=== PATIENT | female | born 1935 | race Caucasian/White ===

== ENCOUNTER 2021-05-16 11:26 | Inpatient (IN) ==
[2021-05-16] MEDS ORDERED: SODIUM CHLORIDE 0.9% 1000ML 1,000 ML IV SCH (13:15)
[2021-05-16 13:16] LABS: Basophils # (auto) 0.02 K/uL (0-0.2); Basophils % (auto) 0.2 %; Eosinophils # (auto) 0.07 K/uL (0-0.5); Eosinophils % (auto) 0.7 %; Hematocrit (blood only) 37.6 % (37-47); Hemoglobin 12.4 g/dL (12.0-16.0); Immature Granulocytes # (auto) 0.05 K/uL (0.00-0.02); Immature Granulocytes % (auto) 0.5 %; Lymphocytes # (auto) 1.17 K/uL (1.2-3.4); Lymphocytes % (auto) 11.2 %; Mean Corpuscular Hemoglobin 32.5 pg (25-34); Mean Corpuscular Volume 98.4 fL (80-100); Mean Platelet Volume 10.2 fL (7.4-10.4); Monocytes # (auto) 0.67 K/uL (0.11-0.59); Monocytes % (auto) 6.4 %; Platelet Count 263 K/uL (130-400); RDW Coefficient of Variation 14.3 % (11.5-14.5); RDW Standard Deviation 50.9 fL (36.4-46.3); Red Blood Count 3.82 M/uL (4.2-5.4); White Blood Count 10.48 K/uL (4.8-10.8)
--- NOTE | 2021-05-16 13:28 | XRay Report ---
XR chest 1V portable HISTORY: 86 years-old Female weakness acute weakness COMPARISON: None TECHNIQUE: Portable AP view of the chest FINDINGS: Cardiac silhouette is enlarged. Calcified plaque the thoracic aorta. No pneumothorax, or large pleura l effusion. Interstitial coarsening with ill-defined peripheral prominent bilateral airspace densitie s. Degenerative changes of the shoulders and spine. Sigmoidal thoracolumbar scoliosis. Cholecystectom y. IMPRESSION: Cardiomegaly with interstitial coarsening and ill-defined peripheral predominated bilater al pulmonary opacities suspicious for an infectious or inflammatory pneumonitis such as viral pneumon ia. ACT 112: Negative or not required by law. The above report was generated using voice recognition software. It may contain grammatical, syntax o r spelling errors. Electronically signed by: Gregg Burns M.D. 05/16/2021 1:27 PM
--- NOTE | 2021-05-16 13:30 | Emergency Department Note ---
History of Present Illness General Chief complaint: Hypertension Stated complaint: FALL, HTN, NAUSEA/VOMITING Time Seen by Provider: 05/16/21 13:02 History of Present Illness 86-year-old female presents to the ED with a chief complaint of a fall this morning. She states that she lives alone in an apartment complex. She was not able to get up her self. She was too weak. She called her neighbor who then called EMS and they helped her up. After helping her up, she was unable to maneuver around the apartment and therefore they brought her in for evaluation. She did have an episode of nausea and vomiting in route to the hospital. The patient states that she has been feeling okay up until this morning. Denies any difficulty with eating or drinking. She states that while she was here she felt it was a little hard to breathe. She currently feels like her legs feel like lead. She denies any other complaints at this time. Denies any injury related to her fall. Denies striking her head or loss of consciousness. No neck or back pains. No extremity pains. No additional complaints this time she did report that her blood pressure was elevated for EMS. She has had some urinary symptoms recently but did not elaborate. Just states that she uses a pad. Home Medications Medication Instructions Recorded Confirmed Type METOPROLOL TARTRATE (LOPRESSOR) 12.5 mg PO BID #0 07/21/11 History ATORVASTATIN (LIPITOR) 10 mg PO QPM #0 07/30/14 History BETHANECHOL CHLORIDE (URECHOLINE) 25 mg PO TID #0 tab 07/30/14 History CHOLECALCIFEROL (Vitamin D) 2,000 inter.unit PO QAM #0 tab 07/30/14 History DULOXETINE HCL (CYMBALTA) 30 mg PO BID #0 cap 07/30/14 History HYDROCORTISONE (Hydrocortisone 1 dose TOPICAL BID PRN #0 07/30/14 History 2.5%) Isosorbide Mononitrate Ext Rel 60 mg PO QAM #0 tab 07/30/14 History (Imdur Ext Rel) MULTIPLE VITAMINS W/ MINERALS 1 cap PEG BID #0 07/30/14 History (PRESERVISION AREDS) POLYETHYLENE GLYCOL 3350 (MIRALAX) 1 dose PO DAILY PRN #0 07/30/14 History POLYETHYLENE GLYCOL-PROPYLENE 1 drp OPB QAM #0 07/30/14 History (SYSTANE) Acetaminophen (Tylenol Extra 1,000 mg PO Q8H 30 Days #0 tab 08/26/14 Rx Strength) Aspirin 325 mg PO BID 30 Days #0 08/26/14 Rx Oxycodone HCl 5 - 10 mg PO Q4H PRN #60 tab 08/26/14 Rx Allergies Allergy/AdvReac Type Severity Reaction Status Date / Time cat dander Allergy Unknown "eyes red Verified 08/23/14 05:21 and throat swells" iodine Allergy Unknown "miguel on Verified 08/23/14 05:21 skin" Sulfa (Sulfonamide Allergy Unknown "itchy" Verified 08/23/14 05:21 Antibiotics) Past Med/Surg History Social History Smoking Status: Never smoker Feels Safe at Home: Yes Review of Systems A total of 10 systems reviewed and were otherwise negative Physical Exam Vital Signs Vital Signs - 24 hr 05/16/21 11:32 05/16/21 13:14 05/16/21 13:30 Temperature 36.7 C 37 C Temperature Source Temporal Artery Scan Oral Pulse Rate 63 Pulse Rate [Apical] 58 L Respiratory Rate 18 18 Respiratory Effort / Characteristics Non-Labored Respiratory Depth Normal Blood Pressure 200/115 H Blood Pressure [Left Arm] 187/67 H Blood Pressure Mean 143 Blood Pressure Mean [Left Arm] 107 Blood Pressure Position [Left Arm] Semi-fowlers Pulse Oximetry 98 95 95 Oxygen Delivery Method Room Air Room Air Room Air Sepsis Recent Fever Within 48 Hours No Sepsis New/Unexplained Change in Mental Status No Sepsis Action Taken by Nursing No Action Required CONSTITUTIONAL/VITAL SIGNS: Reviewed / noted above. GENERAL: Non-toxic in appearance. Generalized weakness. INTEGUMENTARY: Warm, dry, and [place]. HEAD: Normocephalic. EYES: without scleral icterus or trauma. ENT/OROPHARYNX: clear and dry. LYMPHADENOPATHY/NECK: Is supple without lymphadenopathy or meningismus. RESPIRATORY: Clear to auscultation bilaterally. No increased work of breathing. CARDIOVASCULAR: Regular rate and rhythm. GI/ABDOMEN: Soft and nontender. No organomegaly or pulsatile mass. EXTREMITIES: Warm and well perfused. BACK: No CVA tenderness. NEUROLOGICAL: Intact without focal deficits. PSYCHIATRIC: normal affect. MUSCULOSKELETAL: Normally developed with good muscle tone. TRIAGE NURSING DOCUMENTATION REVIEWED. Course Administered Medications Discontinued Medications Sodium Chloride (Nss 1000ml) 1,000 mls @ 999 mls/hr IV .Q1H1M TULIO Stop: 05/16/21 14:15 Last Admin: 05/16/21 14:06 Dose: 999 mls/hr Documented by: [id number] Medical Decision Making Differential Diagnosis Medical decision Medical Records Attestation: I reviewed the patient's medical records. Home Medications Current Medication List: was personally reviewed by me Laboratory Data Attestation: I reviewed the patient's lab results. Result diagrams: 05/16/21 13:00 05/16/21 13:00 Lab Results 05/16/21 05/16/21 05/16/21 Range/Units 13:00 13:00 13:00 WBC 10.48 (4.8-10.8) K/uL RBC 3.82 L (4.2-5.4) M/uL Hgb 12.4 (12.0-16.0) g/dL Hct 37.6 (37-47) % MCV 98.4 (80-100) fL MCH 32.5 (25-34) pg MCHC 33.0 (32-36) g/dL RDW Std Deviation 50.9 H (36.4-46.3) fL RDW Coeff of Nickolas 14.3 (11.5-14.5) % Plt Count 263 (130-400) K/uL MPV 10.2 (7.4-10.4) fL Immature Gran % (Auto) 0.5 % Neut % (Auto) 81.0 % Lymph % (Auto) 11.2 % Franklin % (Auto) 6.4 % Eos % (Auto) 0.7 % Baso % (Auto) 0.2 % Neut # (Auto) 8.50 H (1.4-6.5) K/uL Lymph # (Auto) 1.17 L (1.2-3.4) K/uL Franklin # (Auto) 0.67 H (0.11-0.59) K/uL Eos # (Auto) 0.07 (0-0.5) K/uL Baso # (Auto) 0.02 (0-0.2) K/uL Immature Gran # (Auto) 0.05 H (0.00-0.02) K/uL Sodium 137 (136-145) mmol/L Potassium 4.2 (3.5-5.1) mmol/L Chloride 105 (98-107) mmol/L Carbon Dioxide 25 (21-32) mmol/L Anion Gap 7 (3-11) BUN 23 (6-23) mg/dl Creatinine 0.97 (0.6-1.2) mg/dl Est Cr Clr Drug Dosing Not Reportable Est GFR ( Amer) 60.4 ml/min Est GFR (Non-Af Amer) 52.1 ml/min BUN/Creatinine Ratio 23.7 H (10-20) Glucose 149 H (70-99(Fasting)) mg/dl Calcium 9.3 (8.5-10.1) mg/dl Magnesium (1.7-2.4) mg/dl Total Bilirubin 0.5 (0.2-1.0) mg/dl AST 19 (13-39) U/L ALT 12 (7-52) U/L Alkaline Phosphatase 79 (34-104) U/L Total Creatine Kinase (26-192) U/L Troponin I 0.07 H* (0-0.04) ng/ml Total Protein 7.6 (6.0-8.3) gm/dl Albumin 4.1 (3.4-5.0) gm/dl Globulin 3.5 (2.5-4.0) gm/dl Albumin/Globulin Ratio 1.2 (0.9-2) 05/16/21 Range/Units 13:00 WBC (4.8-10.8) K/uL RBC (4.2-5.4) M/uL Hgb (12.0-16.0) g/dL Hct (37-47) % MCV (80-100) fL MCH (25-34) pg MCHC (32-36) g/dL RDW Std Deviation (36.4-46.3) fL RDW Coeff of Nickolas (11.5-14.5) % Plt Count (130-400) K/uL MPV (7.4-10.4) fL Immature Gran % (Auto) % Neut % (Auto) % Lymph % (Auto) % Franklin % (Auto) % Eos % (Auto) % Baso % (Auto) % Neut # (Auto) (1.4-6.5) K/uL Lymph # (Auto) (1.2-3.4) K/uL Franklin # (Auto) (0.11-0.59) K/uL Eos # (Auto) (0-0.5) K/uL Baso # (Auto) (0-0.2) K/uL Immature Gran # (Auto) (0.00-0.02) K/uL Sodium (136-145) mmol/L Potassium (3.5-5.1) mmol/L Chloride (98-107) mmol/L Carbon Dioxide (21-32) mmol/L Anion Gap (3-11) BUN (6-23) mg/dl Creatinine (0.6-1.2) mg/dl Est Cr Clr Drug Dosing Est GFR ( Amer) ml/min Est GFR (Non-Af Amer) ml/min BUN/Creatinine Ratio (10-20) Glucose (70-99(Fasting)) mg/dl Calcium (8.5-10.1) mg/dl Magnesium 2.0 (1.7-2.4) mg/dl Total Bilirubin (0.2-1.0) mg/dl AST (13-39) U/L ALT (7-52) U/L Alkaline Phosphatase (34-104) U/L Total Creatine Kinase 134 (26-192) U/L Troponin I (0-0.04) ng/ml Total Protein (6.0-8.3) gm/dl Albumin (3.4-5.0) gm/dl Globulin (2.5-4.0) gm/dl Albumin/Globulin Ratio (0.9-2) Imaging Data Radiologist's Impression: Chest X-Ray 05/16/21 13:14 XR chest 1V portable HISTORY: 86 years-old Female weakness acute weakness COMPARISON: None TECHNIQUE: Portable AP view of the chest FINDINGS: Cardiac silhouette is enlarged. Calcified plaque the thoracic aorta. No pneumothorax, or large pleural effusion. Interstitial coarsening with ill- defined peripheral prominent bilateral airspace densities. Degenerative changes of the shoulders and spine. Sigmoidal thoracolumbar scoliosis. Cholecystectomy. IMPRESSION: Cardiomegaly with interstitial coarsening and ill-defined peripheral predominated bilateral pulmonary opacities suspicious for an infectious or inflammatory pneumonitis such as viral pneumonia. ACT 112: Negative or not required by law. The above report was generated using voice recognition software. It may contain grammatical, syntax or spelling errors. Electronically signed by: Gregg Burns M.D. 05/16/2021 1:27 PM ECG Data Attestation: I personally reviewed and interpreted this ECG as follows: Additional Comments: Twelve-lead EKG: Per my interpretation shows a sinus rhythm at a rate of 50. Variable PA intervals with variable conduction. No ST elevation. No PVCs. MDM Narrative Patient presents with generalized weakness and a fall this morning. She lives alone. Did not injure herself with a fall but was unable to get up. Does report some vague urinary symptoms and states that her mouth feels dry otherwise no specific complaints. Chest x-ray is concerning for possible pneumonia. Troponin is slightly elevated. EKG shows a sinus rhythm at a rate of 50 with variable PA intervals causing some irregularity in the rhythm.CBC was unremarkable. Chemistry panel was unremarkable. Urinalysis is pending. She was empirically treated with IV Rocephin and IV Zithromax for the chest x-ray findings. She was also given IV fluids. She will be seen by the hospitalist for further inpatient evaluation and care. Impression & Plan Fall, Generalized muscle weakness, Aspiration pneumonia of both lungs, Elevated troponin, Abnormal ECG Discharge Plan Visit Data Chief Complaint: Hypertension Stated Complaint: FALL, HTN, NAUSEA/VOMITING ED Provider: Carlito Acosta Discharge Problem: Fall, Generalized muscle weakness, Aspiration pneumonia of both lungs, Elevated troponin, Abnormal ECG Forms Stand Alone Forms: My [facility] Prescriptions Prescriptions: No Action METOPROLOL TARTRATE (LOPRESSOR) 25 MG tablet 12.5 mg PO BID Qty: 0 RF: 0 ATORVASTATIN (LIPITOR) 10 MG tablet 10 mg PO QPM Qty: 0 RF: 0 BETHANECHOL CHLORIDE (URECHOLINE) 25 MG tablet 25 mg PO TID Qty: 0 RF: 0 CHOLECALCIFEROL (Vitamin D) 1,000 INTER.UNIT tablet 2,000 inter.unit PO QAM Qty: 0 RF: 0 DULOXETINE HCL (CYMBALTA) 30 MG capsule 30 mg PO BID Qty: 0 RF: 0 HYDROCORTISONE (Hydrocortisone 2.5%) 30 GM cream 1 dose Topical BID PRN (Reason: PRN) Qty: 0 RF: 0 Isosorbide Mononitrate Ext Rel (Imdur Ext Rel) 60 MG EXT REL TAB 60 mg PO QAM Qty: 0 RF: 0 MULTIPLE VITAMINS W/ MINERALS (PRESERVISION AREDS) 1 CAP capsule 1 cap PEG BID Qty: 0 RF: 0 POLYETHYLENE GLYCOL 3350 (MIRALAX) 1 POW POW 1 dose PO DAILY PRN (Reason: PRN) Qty: 0 RF: 0 POLYETHYLENE GLYCOL-PROPYLENE (SYSTANE) 1 DONNA SOLTAB 1 drp OPB QAM Qty: 0 RF: 0 Acetaminophen (Tylenol Extra Strength) 500 MG tablet 1,000 mg PO Q8H 30 Days Qty: 0 RF: 0 Aspirin 325 MG ENTERIC COATED TAB 325 mg PO BID 30 Days Qty: 0 RF: 0 Oxycodone HCl 5 MG tablet 5 - 10 mg PO Q4H PRN (Reason: Pain) Qty: 60 RF: 0 Referrals Referrals: Lucho Adams DO [Primary Care Provider] -
[2021-05-16 13:58] LABS: Alanine Aminotransferase 12 U/L (7-52); Albumin Globulin Ratio 1.2 (0.9-2); Albumin Level 4.1 gm/dl (3.4-5.0); Alkaline Phosphatase 79 U/L (34-104); Anion Gap 7 (3-11); Aspartate Aminotransferase 19 U/L (13-39); BUN Creatinine Ratio 23.7 (10-20); Bilirubin,Total 0.5 mg/dl (0.2-1.0); Blood Urea Nitrogen 23 mg/dl (6-23); Calcium 9.3 mg/dl (8.5-10.1); Carbon Dioxide 25 mmol/L (21-32); Chloride 105 mmol/L (98-107); Est GFR (African American) 60.4 ml/min; Est GFR (Non-African American) 52.1 ml/min; Globulin 3.5 gm/dl (2.5-4.0); Glucose 149 mg/dl (70-99(Fasting)); Potassium 4.2 mmol/L (3.5-5.1); Sodium 137 mmol/L (136-145); Total Protein 7.6 gm/dl (6.0-8.3)
[2021-05-16] MEDS ORDERED: AZITHROMYCIN 500 MG in DEXTROSE 5% 250 ML IV ONE (14:29)
[2021-05-16] MEDS ORDERED: cefTRIAXone SODIUM 1,000 MG/50 ML BAG IV STA (14:29)
[2021-05-16 14:47] LABS: Appearance Urine Clear (Clear); Bacteria Urine Automated 1+ (Negative); Bilirubin Urine Negative (Negative); Blood Urine Trace (Negative); Cast Urine Automated 0 /lpf (0-5); Color Urine Yellow; Epithelial Cell Urine Auto 0-5 /lpf (0-5); Glucose Urine UA Negative (Negative); Ketones Urine Negative (Negative); Leukocyte Esterase Urine Trace (Negative); Nitrite Urine Positive (Negative); Protein Urine Trace (Negative); RBC Urine Automated 0-4 /hpf (0-4); Specific Gravity Urine 1.014 (1.000-1.030); Urobilinogen Urine Negative (Negative); WBC Urine Automated >30 /hpf (0-5)
[2021-05-16] MEDS ORDERED: hydrALAZINE HCL 20 MG/ML VIAL IV STA ×2 (15:32→16:29)
[2021-05-16] MEDS ORDERED: hydrALAZINE HCL 20 MG/ML VIAL IV PRN ×2 (16:18→17:15)
--- NOTE | 2021-05-16 16:25 | History & Physical Report ---
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 Generalized weakness Fall UTI Admit to PCU Await urine culture Received IV Rocephin 1 g in ED, give additional 1 g to equal 2 g Start 2 g IV Rocephin daily tomorrow PT/OT Hypertensive urgency Elevated troponin History of CAD with PCI to RCA in 2006 Abnormal EKG Patient with well-controlled BP as outpatient, Toprol and Imdur BP systolic greater than 230 during my evaluation She is without chest pain or shortness of breath, troponin 0.07 Hydralazine 10 mg IV x1 given SBP, give additional 10 mg IV hydralazine monitor closely, consider starting amlodipine or trial IV vasotec. If difficultly to control BP may need to consider cardene gtt ( Blood pressure improved to 153/62 and hydralazine 10mg x 2 and placement of burton catheter) cycle troponins, repeat EKG pt with abn ekg ? rate controlled afib and sinus pause, will monitor closely on tele, if definite afib consult cardiology give home dose imdur Urinary Retention nurse reports >800cc urine retention place burton, may be contributing to HTN burton drained 1250cc Hyperglycemia obtain a1c in a.m. admitting bsg 140s HLD continue statin CKD stage III renal function 0.97 avoid nephrotoxic agents DVT ppx: Lovenox Dispo: PCU FULL CODE PCP: Angie Pt was seen and examined in collaboration with Dr. Petty, please see addendum The chart was completed utilizing [employer] Speech voice recognition software. Grammatical errors, random word insertions, pronoun errors, and incomplete sentences are an occasional consequence of this system due to software limitations, ambient noise, and hardware issues. Any formal questions or concerns about the content, text, or information contained within the body of this dictation should be directly addressed to the provider for clarification. History of Present Illness Chief Complaint: Weakness, Fall and emesis x 1 day. 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 Patient's very good friend is at bedside who she lives bedside. She currently lives alone and ambulates with walker at baseline. She was in her normal state of health until this morning whenever she went to get out of bed to go to bathroom, she felt dizzy, "off balance," and fell to her knees. She did not lose consciousness or syncopized. She admits to hitting the back of her head off of a stand. She had no known injury. She was able to crawl to a phone and call her friend who then summoned EMS. When her friend arrived she did have episode of vomiting. Patient admits to being in her normal state of health yesterday. She currently feels chilled but denies any documented fever, sweats, lightheadedness, presyncope, URI symptoms, cough, chest pain, headache, change in vision, change in hearing, hematuria, melena or hematochezia. She does complain of suprapubic abdominal discomfort as well as dysuria. She denies any weight gain or edema. She states she is actually lost weight. She did not take any of her medications today. In ED patient's BP was significantly elevated but otherwise hemodynamically stable. Her lab work was consistent with WBC 10.48, H&H 12.4 and 37.6, BUN 23, creatinine 0.97, glucose 149, troponin 0.07, procalcitonin 0.05, urinalysis concerning for infection. Chest x-ray revealed cardiomegaly with bilateral pulmonary opacities concerning for infectious or inflammatory pneumonitis such as viral pneumonia. She is saturating well on room air without respiratory complaints. In ED she did receive IV Rocephin, azithromycin and IV fluid. Allergies Allergy/AdvReac Type Severity Reaction Status Date / Time iodine Allergy Intermediate "miguel on Verified 05/16/21 16:32 skin" cat dander Allergy Mild "eyes red Verified 05/16/21 16:32 and throat swells" nickel Allergy Mild skin Verified 05/16/21 16:32 breaks out Sulfa (Sulfonamide Allergy Mild "itchy" Verified 05/16/21 16:32 Antibiotics) Home Medications Medication Instructions Recorded Confirmed Type Betamethasone Lotion 1 applic TOPICAL BID 05/16/21 05/16/21 History acetaminophen 500 mg tablet 1,000 mg PO Q6H PRN 05/16/21 05/16/21 History (Tylenol Extra Strength) aspirin 81 mg tablet,delayed 81 mg PO DAILY 05/16/21 05/16/21 History release atorvastatin 10 mg tablet 10 mg PO DAILY 05/16/21 05/16/21 History betamethasone dipropionate 0.05 % 1 applic TOPICAL BID PRN 05/16/21 05/16/21 History topical cream cholecalciferol (vitamin D3) 125 125 mcg PO DAILY 05/16/21 05/16/21 History mcg (5,000 unit) tablet (Vitamin D3) duloxetine 30 mg capsule,delayed 30 mg PO BID 05/16/21 05/16/21 History release fluocinonide 0.05 % topical 1 applic TOPICAL BID 05/16/21 05/16/21 History solution hydrocortisone 2.5 % topical 1 applic TOPICAL BID PRN 05/16/21 05/16/21 History ointment hydroxyzine HCl 10 mg tablet 10 mg PO Q6 PRN 05/16/21 05/16/21 History isosorbide mononitrate 60 mg 60 mg PO DAILY 05/16/21 05/16/21 History tablet,extended release 24 hr metoprolol tartrate 25 mg tablet 12.5 mg PO BID 05/16/21 05/16/21 History ethxtnrl-szu-GK 200 mcg-vit K 15 1 tab PO DAILY 05/16/21 05/16/21 History mcg-lycope 150 ceu-xvugwu-fark tablet (Ocuvite Eye Plus Multi) peg 400-propylene glycol (PF) 0.4 0 drp OPHTHALMIC (EYE) DIRECTED 05/16/21 05/16/21 History %-0.3 % eye drops in a dropperette PRN (Systane (PF)) Past Med/Surg History Medical History (Updated 05/16/21 @ 16:36 by Viki Matthews PA-C) CAD (coronary artery disease) "s/p stent RCA 2006" Carotid stenosis, asymptomatic CKD (chronic kidney disease), stage III Dyslipidemia Hx of malignant melanoma of skin "right great toe s/p amputation" Hypertension Restless leg syndrome Surgical History (Updated 05/16/21 @ 16:25 by Viki Matthews PA-C) H/O cystoscopy H/O umbilical hernia repair History of hysterectomy S/P angioplasty with stent "RCA 2006" S/P eye surgery Family History (Updated 05/16/21 @ 16:28 by Viki Matthews PA-C) Mother , 62 Diabetes Stroke Father , 87 Cancer Social History (Updated 05/16/21 @ 16:32 by Viki Matthews PA-C) Smoking Status: Never smoker Hx Alcohol Use: Yes Alcohol type: beer Alcohol Intake Frequency: Monthly or Less Hx Substance Use: No marital status: / Current Living Situation: Other Current Living Situation Comment: apartment with friend nearby Feels Safe at Home: Yes Review of Systems Review of Systems: All systems reviewed & are unremarkable except as noted in HPI & below Physical Exam Physical Exam: Constitutional: WD/WN, elderly, F vitals as above, NAD, sitting up in bed, pleasant, conversing easily Head: Normocephalic, Atraumatic Eyes: PERRL, conjunctivae normal, anicteric sclerae ENMT: external ear and nose normal, oropharynx normal Neck: trachea midline, no thyromegaly normal visual inspection Respiratory: normal respiratory effort, lungs clear to auscultation, no wheeze, rales, rhonchi. Normal insp/exp effort, no accessory muscle use Cardiovascular: RRR, no murmur, no edema Vessels: no JVD or carotid bruit Chest: normal inspection of chest Abdomen: normal bowel sounds, soft, +suprapubic tenderness to palpation, no rebound,rigidty, no hepatosplenomegaly Musculoskeletal: no cyanosis or clubbing, extremities motor strength 5/5 Skin: no rashes, warm and dry normal turgor Neurologic: PERRL, EOMI, accommodation nl, no face palsy, no dysarthria CN's II-XI intact bilaterally and moves all extremities Psychiatric: A+Ox3, euthymic affect Lymphatic: no cervical or axillary lymphadenopathy : deferred Results & Data Results & Data (MN) Vital Signs (Past 12 Hours) Vital Signs Temp Pulse Pulse Resp BP BP Pulse Ox 05/16/21 13:30 37 C 58 L 18 187/67 H 95 05/16/21 13:14 95 05/16/21 11:32 36.7 C 63 18 200/115 H 98 Medications Administered Medication List Discontinued Medications Hydralazine HCl (Hydralazine Hcl 20 Mg/Ml Vial) 10 mg IV NOW STA Stop: 05/16/21 15:33 Last Admin: 05/16/21 15:51 Dose: 10 mg Documented by: [id number] Sodium Chloride (Nss 1000ml) 1,000 mls @ 999 mls/hr IV .Q1H1M TULIO Stop: 05/16/21 14:15 Last Admin: 05/16/21 14:06 Dose: 999 mls/hr Documented by: [id number] Ceftriaxone Sodium (Rocephin) 1,000 mg in 50 mls @ 100 mls/hr IV NOW STA Stop: 05/16/21 14:58 Last Infusion: 05/16/21 15:51 Dose: 0 mls/hr Documented by: [id number] Admin: 05/16/21 15:16 Dose: 100 mls/hr Documented by: [id number] Azithromycin 500 mg/ Dextrose 255 mls @ 125 mls/hr IV ONE ONE Stop: 05/16/21 16:31 Last Admin: 05/16/21 15:52 Dose: 125 mls/hr Documented by: [id number] ECG Rate (beats per minute): 50 Rhythm: normal sinus Additional Comments: EKG reading afib, but pt with p waves and regularity with pause COVID-19 Results Results COVID-19 Adm Lab Results: RBC 3.82 M/uL (4.2-5.4) L 05/16/21 WBC 10.48 K/uL (4.8-10.8) 05/16/21 Hgb 12.4 g/dL (12.0-16.0) 05/16/21 Hct 37.6 % (37-47) 05/16/21 Plt Count 263 K/uL (130-400) 05/16/21 Neutrophils (%) (Auto) 81.0 % 05/16/21 Lymphocytes (%) (Auto) 11.2 % 05/16/21 Monocytes # (Auto) 0.67 K/uL (0.11-0.59) H 05/16/21 Eosinophils # (Auto) 0.07 K/uL (0-0.5) 05/16/21 Immature Granulocyte % (Auto) 0.5 % 05/16/21 Neutrophils # (Auto) 8.50 K/uL (1.4-6.5) H 05/16/21 Lymphocytes # (Auto) 1.17 K/uL (1.2-3.4) L 05/16/21 Monocytes # (Auto) 0.67 K/uL (0.11-0.59) H 05/16/21 Eosinophils # (Auto) 0.07 K/uL (0-0.5) 05/16/21 Basophils # (Auto) 0.02 K/uL (0-0.2) 05/16/21 Immature Granulocyte # (Auto) 0.05 K/uL (0.00-0.02) H 05/16/21 Na 137 mmol/L (136-145) 05/16/21 K 4.2 mmol/L (3.5-5.1) 05/16/21 Cl 105 mmol/L (98-107) 05/16/21 CO2 25 mmol/L (21-32) 05/16/21 Anion Gap 7 (3-11) 05/16/21 BUN 23 mg/dl (6-23) 05/16/21 Creatinine 0.97 mg/dl (0.6-1.2) 05/16/21 BUN/Creatinine Ratio 23.7 (10-20) H 05/16/21 Glucose Level 149 mg/dl (70-99(Fasting)) H 05/16/21 Ca 9.3 mg/dl (8.5-10.1) 05/16/21 Total Bilirubin 0.5 mg/dl (0.2-1.0) 05/16/21 AST/SGOT 19 U/L (13-39) 05/16/21 ALT/SGPT 12 U/L (7-52) 05/16/21 Alkaline Phosphatase 79 U/L (34-104) 05/16/21 Total Protein 7.6 gm/dl (6.0-8.3) 05/16/21 Albumin 4.1 gm/dl (3.4-5.0) 05/16/21 Globulin 3.5 gm/dl (2.5-4.0) 05/16/21 Albumin/Globulin Ratio 1.2 (0.9-2) 05/16/21 Total CK 134 U/L (26-192) 05/16/21 Troponin I 0.07 ng/ml (0-0.04) H* 05/16/21 Procalcitonin < 0.05 ng/ml (0-0.5) 05/16/21 SARS-CoV-2, RNA, NAAT NEGATIVE (NEGATIVE) 05/16/21 Chest X-Ray 05/16/21 Code Status & VTE Plan Code Status FULL CODE VTE Prophylaxis Plan VTE Prophylaxis will be ordered: Yes Supervising Physician Co-Signing Physician Notes Attending addendum: Patient is an 86 year old female with h/o HTN, CAD, HLD presented to the ED with weakness and fall today. Hit the back of her head but denies any LOC. No external bruise noted. Awake, alert oriented in ED, hemodynamically stable, non focal exam. Chest clear bilaterally, heart sounds normal. no bruises noted. no edema. Abdomen benign. Found to have UTI with urinary retention and hypertensive urgency in the ED. Assessment/Plan: 1. UTI- Continue rocephin pending urine clx results. Tailor per culture results 2. Urinary retention- due to above. Burton placed. Voiding trial in few days. 3. Hypertensive urgency- likely contributed by urinary retention. Improved after burton and iv hydralazine. Continue home metoprolol and imdur, iv hydralazine prn. 4.Mildly elevated trop with abnormal EKG- likely from #3. No chest pain. Trend trop, monitor on tele. Consider cardio evaluation if needed. I personally reviewed the record. I interviewed and examined the patient at bedside. Patient's care is coordinated with Viki Matthews PA-C. Please refer to the documentation above for details of patient's presentation and for discussion of other issues.
[2021-05-16] MEDS ORDERED: ISOSORBIDE MONO EXTENDED REL 60 MG TABCR PO STA (16:41)
--- NOTE | 2021-05-16 17:10 | Electrocardiogram Report ---
Test Reason : Blood Pressure : / mmHG Vent. Rate : 050 BPM Atrial Rate : 066 BPM P-R Int : 000 ms QRS Dur : 098 ms QT Int : 440 ms P-R-T Axes : 000 -33 088 degrees QTc Int : 401 ms Sinus bradycardia with marked sinus arrhythmia and junctional escape beats Left axis deviation Voltage criteria for left ventricular hypertrophy Anterior infarct (cited on or before 16-MAY-2021) Abnormal ECG When compared with ECG of 30-JUL-2014 13:13, Vent. rate has decreased BY 24 BPM Questionable change in initial forces of Anteroseptal leads Confirmed by Antwan Crouch ([id number]) on 05/16/2021 5:10:16 PM Referred By: REFERRED SELF Confirmed By:Antwan Crouch
[2021-05-16] MEDS ORDERED: ALUMINUM/MAGNESIUM SUSP 30 ML UDC PO PRN (17:15)
[2021-05-16] MEDS ORDERED: hydrOXYzine HCl 10 MG TAB PO PRN (17:15)
[2021-05-16] MEDS ORDERED: POLYETHYLENE (MIRALAX) 17 GM PACK PO PRN (17:15)
[2021-05-16] MEDS ORDERED: BETAMETHASONE DIP AUG (DIPROLENE) 0.05% CR 15 GM TUBE EXT PRN (17:15)
[2021-05-16] MEDS ORDERED: ONDANSETRON INJ 2 MG/ML 2 ML VIAL IV PRN (17:15)
[2021-05-16] MEDS ORDERED: MAGNESIUM HYDROXIDE SUSP 30 ML UDC PO PRN (17:15)
--- NOTE | 2021-05-16 17:15 | Electrocardiogram Report ---
Test Reason : Blood Pressure : / mmHG Vent. Rate : 057 BPM Atrial Rate : 061 BPM P-R Int : 000 ms QRS Dur : 096 ms QT Int : 468 ms P-R-T Axes : 000 082 -23 degrees QTc Int : 455 ms Poor data quality, interpretation may be adversely affected Sinus rhythm with blocked PAC Septal infarct (cited on or before 16-MAY-2021) Abnormal ECG When compared with ECG of 16-MAY-2021 13:00, (unconfirmed) No significant change Confirmed by Antwan Crouch ([id number]) on 05/16/2021 5:15:23 PM Referred By: REFERRED SELF Confirmed By:Antwan Crouch
[2021-05-16] MEDS ORDERED: cefTRIAXone SODIUM 1000MG/50ML D5W IV ONE (18:08)
[2021-05-16] MEDS ORDERED: cefTRIAXone SODIUM 1,000 MG in DEXTROSE 5% 50 ML IV ONE (18:15)
[2021-05-16] MEDS ORDERED: ARTIFICIAL TEARS OP PRN (18:15)
[2021-05-16] MEDS: ACETAMINOPHEN 325 MG TAB PO PRN (21:22)
[2021-05-16] MEDS: METOPROLOL TARTRATE 25 MG TAB PO SCH (21:22)
[2021-05-16] MEDS: ENOXAPARIN INJ 40 MG/0.4 ML SYR SQ SCH (21:42)
[2021-05-16] MEDS: DULoxetine HCL 30 MG CAP PO SCH (21:42)
[2021-05-17 05:36] LABS: Basophils # (auto) 0.01 K/uL (0-0.2); Basophils % (auto) 0.1 %; Eosinophils # (auto) 0.09 K/uL (0-0.5); Hematocrit (blood only) 32.8 % (37-47); Hemoglobin 10.7 g/dL (12.0-16.0); Immature Granulocytes # (auto) 0.02 K/uL (0.00-0.02); Immature Granulocytes % (auto) 0.2 %; Lymphocytes # (auto) 2.16 K/uL (1.2-3.4); Lymphocytes % (auto) 23.9 %; Mean Corpuscular Hgb Conc 32.6 g/dL (32-36); Mean Corpuscular Volume 98.2 fL (80-100); Mean Platelet Volume 9.7 fL (7.4-10.4); Monocytes % (auto) 11.1 %; Neutrophils # (auto) 5.76 K/uL (1.4-6.5); Neutrophils % (auto) 63.7 %; Nucleated RBC # (auto) 0.02 K/uL (0-0); Nucleated RBC % (auto) 0.2 %; Platelet Count 226 K/uL (130-400); RDW Coefficient of Variation 14.5 % (11.5-14.5); RDW Standard Deviation 51.6 fL (36.4-46.3); Red Blood Count 3.34 M/uL (4.2-5.4); White Blood Count 9.04 K/uL (4.8-10.8)
[2021-05-17 06:02] LABS: Albumin Globulin Ratio 1.2 (0.9-2); Albumin Level 3.3 gm/dl (3.4-5.0); BUN Creatinine Ratio 20.2 (10-20); Bilirubin,Total 0.6 mg/dl (0.2-1.0); Calcium 8.4 mg/dl (8.5-10.1); Creatinine Clr Calc Pharmacy 42.2 ml/min; Est GFR (African American) 55.6 ml/min; Est GFR (Non-African American) 47.9 ml/min; Globulin 2.8 gm/dl (2.5-4.0); Magnesium 1.8 mg/dl (1.7-2.4); Potassium 3.8 mmol/L (3.5-5.1); Total Protein 6.1 gm/dl (6.0-8.3)
[2021-05-17] MEDS ORDERED: cefTRIAXone SODIUM 2000MG/70ML D5W IV ONE (08:28)
[2021-05-17 08:36] LABS: Estimated Average Glucose 131 mg/dl; Hemoglobin A1C 6.2 % (4.5-5.6)
[2021-05-17] MEDS: cefTRIAXone SODIUM 2,000 MG in DEXTROSE 5% 50 ML IV SCH (09:13)
[2021-05-17] MEDS: CHOLECALCIFEROL 5,000 UNITS 125 MCG TAB PO SCH (09:13)
[2021-05-17] MEDS: DULoxetine HCL 30 MG CAP PO SCH ×2 (09:13→21:38)
[2021-05-17] MEDS: ASPIRIN 81 MG ECTAB PO SCH (09:13)
[2021-05-17] MEDS: ISOSORBIDE MONO EXTENDED REL 60 MG TABCR PO SCH (09:13)
[2021-05-17] MEDS: METOPROLOL TARTRATE 25 MG TAB PO SCH ×2 (09:13→21:38)
[2021-05-17] MEDS: ATORVASTATIN 10 MG TAB PO SCH (09:13)
[2021-05-17] MEDS: MULTIVITAMIN TAB PO SCH (09:14)
--- NOTE | 2021-05-17 11:29 | CT Scan Report ---
CT SCAN OF THE CHEST WITHOUT IV CONTRAST CLINICAL HISTORY: Dyspnea. COMPARISON STUDY: Chest x-ray dated 05/16/2021. TECHNIQUE: CT scan of the thorax was performed from the thoracic inlet to the upper abdomen. Images are reviewed in the axial, sagittal, and coronal planes. IV contrast was not administered for this ex amination as per the referring clinician. A dose lowering technique was utilized adhering to the [facility] of [place]. CT DOSE: 402.44 mGy.cm FINDINGS: Thyroid: Normal in size and heterogeneous in attenuation. Thoracic aorta: There is atherosclerotic calcification of the thoracic aorta trauma with is normal in caliber and demonstrates standard 3-vessel arch anatomy. Heart: The heart is enlarged and without pericardial effusion. The pulmonary trunk is mildly dilated measuring 3.3 cm diameter. This suggests pulmonary artery hypertension. The coronary arteries and dileep ral annulus are densely calcified. Lungs and pleural spaces: Subpleural reticulation is seen throughout both lungs. There is bibasilar s carring/atelectasis. No airspace consolidation typical for pneumonia or pleural effusion is identifie d. Foci of air trapping are seen throughout both lungs. The trachea and central airways are clear. A 4 mm focus of pleural-based nodularity seen in the right upper lobe along the minor fissure on image #152. Mediastinum: There is no mediastinal lymphadenopathy. Glenis: Not well assessed without IV contrast. Axillae: There is no axillary lymphadenopathy. Upper abdomen: There is a small to moderate hiatal hernia. A coarse calcification is noted in the rig ht lobe of the liver. Diverticula are noted in the partially imaged left colon. Skeletal structures: The skeletal structures are osteopenic. There is a mild chronic superior endplat e compression deformity of T3. Degenerative change is noted in the shoulders and thoracic spine. Ther e are healed right-sided rib fractures. No lytic or blastic bony lesions are seen. IMPRESSION: Cardiomegaly and chronic parenchymal changes as above with no active disease in the chest . ACT 112: Negative or not required by law. Electronically signed by: Kendall Walker M.D. 05/17/2021 11:27 AM
[2021-05-17] MEDS: ENOXAPARIN INJ 40 MG/0.4 ML SYR SQ SCH (21:37)
[2021-05-18] MEDS: cefTRIAXone SODIUM 2,000 MG in DEXTROSE 5% 50 ML IV SCH (07:18)
[2021-05-18] MEDS: MULTIVITAMIN TAB PO SCH (07:24)
[2021-05-18] MEDS: ASPIRIN 81 MG ECTAB PO SCH (07:25)
[2021-05-18] MEDS: CHOLECALCIFEROL 5,000 UNITS 125 MCG TAB PO SCH (07:26)
[2021-05-18] MEDS: METOPROLOL TARTRATE 25 MG TAB PO SCH ×2 (07:26→21:21)
[2021-05-18] MEDS: ISOSORBIDE MONO EXTENDED REL 60 MG TABCR PO SCH (07:27)
[2021-05-18] MEDS: ATORVASTATIN 10 MG TAB PO SCH (07:28)
[2021-05-18] MEDS: DULoxetine HCL 30 MG CAP PO SCH ×2 (07:29→21:21)
[2021-05-18] MEDS: ACETAMINOPHEN 325 MG TAB PO PRN (11:06)
--- NOTE | 2021-05-18 11:31 | Electrocardiogram Report ---
Test Reason : Blood Pressure : / mmHG Vent. Rate : 056 BPM Atrial Rate : 062 BPM P-R Int : 342 ms QRS Dur : 100 ms QT Int : 442 ms P-R-T Axes : 073 -29 121 degrees QTc Int : 426 ms Sinus rhythm with Mobitz I (Wenckebach) block Left ventricular hypertrophy with repolarization abnormality Cannot rule out Septal infarct (cited on or before 16-MAY-2021) Abnormal ECG When compared with ECG of 16-MAY-2021 14:56, Significant changes have occurred Confirmed by Eliel Agarwal ([id number]) on 05/18/2021 11:30:25 AM Referred By: REFERRED SELF Confirmed By:Eliel Agarwal
--- NOTE | 2021-05-18 16:03 | Hospitalist Progress Note ---
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 Generalized weakness Fall UTI Urine culture: Staph species continue Ceftri IV improving PT recommending Rehab Hypertensive urgency Mildly Elevated troponin History of CAD with PCI to RCA in 2006 Abnormal EKG Patient with well-controlled BP as outpatient, Toprol and Imdur BP systolic greater than 230 during my evaluation She is without chest pain or shortness of breath, troponin 0.07 Hydralazine 10 mg IV x1 given SBP, give additional 10 mg IV hydralazine monitor closely, consider starting amlodipine or trial IV vasotec. If difficultly to control BP may need to consider cardene gtt ( Blood pressure improved to 153/62 and hydralazine 10mg x 2 and placement of burton catheter) cycle troponins, repeat EKG pt with abn ekg ? rate controlled afib and sinus pause, will monitor closely on tele, if definite afib consult cardiology give home dose imdur 05/18 troponin trended down from 0.2 to 0.1 EKG no signs of acute infarct Echo; EF 65-70% moderate LVH no regional wall motion abnormalities Urinary Retention nurse reports >800cc urine retention continue Burton Cath, anticipate remove tomorrow Hyperglycemia a1c 6.2 diet HLD continue statin CKD stage III stable avoid nephrotoxic agents DVT ppx: Lovenox Dispo: PT recommending to transition to Rehab/SNF FULL CODE PCP: Angie Admission and Anticipated Discharge Date Admission Date: May 16, 2021 Subjective ff up for weakness, UTI etc seen resting in bed, comfortable in good spirits states she feels that she is improving no abdominal pain, problems with urination, etc reports R base of 1st digit pain no other symptoms Review of Systems Review of Systems: all noted and negative except for above Physical Exam Physical Exam: General- oriented x 3, not in distress, speaks in sentences with no effort or accessory muscle use Eyes- anicteric Neck- no JVD Lungs- clear breath sounds bilaterally, no rales/wheezes Heart- normal rate, regular rhythm; no murmurs Abdomen- normal bowel sounds, nondistended, soft, nontender Extremities- no pretibial edema, no calf tenderness Neuro- alert, oriented x 3; no gross focal neurologic deficits Skin- warm & dry Results & Data Results & Data ([facility]) Vital Signs (Past 12 Hours) Vital Signs Temp Pulse Pulse Resp BP Pulse Ox 05/18/21 15:08 36.8 C 67 18 146/69 H 96 05/18/21 12:42 36.4 C L 64 18 147/75 H 96 05/18/21 08:03 63 05/18/21 07:18 37.0 C 61 18 178/78 H 95 all noted and reviewed including below
--- NOTE | 2021-05-18 16:12 | Hospitalist Progress Note ---
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 Generalized weakness Fall UTI Urine culture: Staph species afebrile weakness improving continue Ceftri IV Hypertensive urgency Mildly Elevated troponin History of CAD with PCI to RCA in 2006 Abnormal EKG Patient with well-controlled BP as outpatient, Toprol and Imdur BP systolic greater than 230 during my evaluation She is without chest pain or shortness of breath, troponin 0.07 Hydralazine 10 mg IV x1 given SBP, give additional 10 mg IV hydralazine monitor closely, consider starting amlodipine or trial IV vasotec. If difficultly to control BP may need to consider cardene gtt ( Blood pressure improved to 153/62 and hydralazine 10mg x 2 and placement of burton catheter) cycle troponins, repeat EKG pt with abn ekg ? rate controlled afib and sinus pause, will monitor closely on tele, if definite afib consult cardiology give home dose imdur 05/17 troponin trended down from 0.2 to 0.1 EKG no signs of acute infarct Echo: EF 65-70% moderate LVH no regional wall motion abnormalities Urinary Retention nurse reports >800cc urine retention continue Burton Cath Hyperglycemia a1c 6.2 diet HLD continue statin CKD stage III stable avoid nephrotoxic agents DVT ppx: Lovenox Admission and Anticipated Discharge Date Admission Date: May 16, 2021 Subjective ff up for weakness, UTI, etc seen resting in bed, comfortable in good spirits states she is feeling better has mild suprapubic pain tolerating burton cath no other symptoms Review of Systems Review of Systems: all noted and negative except for above Physical Exam Physical Exam: General- oriented x 3, not in distress, speaks in sentences with no effort or accessory muscle use Head- atraumatic Eyes- PERRL, EOMI, anicteric ENT- oropharynx clear Neck- supple, no JVD, no adenopathy, no thyromegaly; carotids +2/2, no bruits appreciated Lungs- clear to auscultation bilaterally, no rales/wheezes Heart- normal rate, regular rhythm; no murmur, no gallop, no rub appreciated Abdomen- normal bowel sounds, nondistended, soft, mild suprapubic tenderness Extremities- no pretibial edema, no calf tenderness; peripheral pulses intact Neuro- alert, oriented x 3; CN 2-12 grossly intact; motor 5/5 bilaterally;s ensation 100% on all extremities; no other gross focal neurologic deficits Skin- warm & dry Results & Data Results & Data ([facility]) Vital Signs (Past 12 Hours) Vital Signs Temp Pulse Pulse Resp BP Pulse Ox 05/18/21 15:08 36.8 C 67 18 146/69 H 96 05/18/21 12:42 36.4 C L 64 18 147/75 H 96 05/18/21 08:03 63 05/18/21 07:18 37.0 C 61 18 178/78 H 95 all noted and reviewed including below
[2021-05-18] MEDS: ENOXAPARIN INJ 40 MG/0.4 ML SYR SQ SCH (21:21)
[2021-05-19] MEDS: cefTRIAXone SODIUM 2,000 MG in DEXTROSE 5% 50 ML IV SCH (07:55)
[2021-05-19] MEDS: ISOSORBIDE MONO EXTENDED REL 60 MG TABCR PO SCH (07:56)
[2021-05-19] MEDS: METOPROLOL TARTRATE 25 MG TAB PO SCH (07:57)
[2021-05-19] MEDS: DULoxetine HCL 30 MG CAP PO SCH (07:57)
[2021-05-19] MEDS: ATORVASTATIN 10 MG TAB PO SCH (07:57)
[2021-05-19] MEDS: MULTIVITAMIN TAB PO SCH (07:58)
[2021-05-19] MEDS: ASPIRIN 81 MG ECTAB PO SCH (07:59)
--- NOTE | 2021-05-19 10:49 | Hospitalist Progress Note ---
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 Generalized weakness Fall UTI Urine culture: MSSA afebrile weakness much improved PT recommends home with home health received Ceftri IV x 3 doses discharge on 2 more days of Augmentin PO d/c Burton ff up with PCP in 1 week Hypertensive urgency Mildly Elevated troponin History of CAD with PCI to RCA in 2006 Abnormal EKG Patient with well-controlled BP as outpatient, Toprol and Imdur BP systolic greater than 230 during my evaluation She is without chest pain or shortness of breath, troponin 0.07 Hydralazine 10 mg IV x1 given SBP, give additional 10 mg IV hydralazine monitor closely, consider starting amlodipine or trial IV vasotec. If difficultly to control BP may need to consider cardene gtt ( Blood pressure improved to 153/62 and hydralazine 10mg x 2 and placement of burton catheter) cycle troponins, repeat EKG pt with abn ekg ? rate controlled afib and sinus pause, will monitor closely on tele, if definite afib consult cardiology give home dose imdur 2/20 troponin trended down from 0.2 to 0.1 EKG no signs of acute infarct Echo: EF 65-70% moderate LVH no regional wall motion abnormalities no chest pain Urinary Retention nurse reports >800cc urine retention d/c Burton likely from UTI ff up with PCP this week Hyperglycemia a1c 6.2 diet HLD continue statin CKD stage III stable avoid nephrotoxic agents DVT ppx: Lovenox Disposition d/c home with home health SVCs ff up with PCP in 1 week plan of care discussed with patient in detail and at length all questions answered she is understanding, agreeable, comfortable with the plan of care Admission and Anticipated Discharge Date Admission Date: May 16, 2021 Subjective ff up for UTI, etc seen resting in bed, comfortable in good spirits oriented, answers all questions appropriately states she feels much better denies abdominal pain, nausea/vomiting, fever/chills no chest pain, dyspnea, palpitations, dizziness states she is ready and would like to be discharged today Review of Systems Review of Systems: all noted and negative except for above Physical Exam Physical Exam: General- oriented x 3, not in distress, speaks in sentences with no effort or accessory muscle use Eyes- anicteric Neck- no JVD Lungs- clear breath sounds bilaterally, no crackles, no wheezing Heart- normal rate, regular rhythm; no murmurs Abdomen- normal bowel sounds, nondistended, soft, nontender No suprapubic tenderness Extremities- no pretibial edema, no calf tenderness Neuro- alert, oriented x 3; no gross focal neurologic deficits Skin- warm & dry Results & Data Results & Data ([facility]) Vital Signs (Past 12 Hours) Vital Signs Temp Pulse Pulse Resp BP Pulse Ox 05/19/21 07:58 36.8 C 53 L 20 169/68 H 98 05/19/21 07:20 57 L 05/19/21 03:27 37 C 72 18 145/74 H 96 05/18/21 22:51 78 all noted and reviewed including below
--- NOTE | 2021-05-19 11:04 | Discharge Summary ---
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 Patient's very good friend is at bedside who she lives bedside. She currently lives alone and ambulates with walker at baseline. She was in her normal state of health until this morning whenever she went to get out of bed to go to bathroom, she felt dizzy, "off balance," and fell to her knees. She did not lose consciousness or syncopized. She admits to hitting the back of her head off of a stand. She had no known injury. She was able to crawl to a phone and call her friend who then summoned EMS. When her friend arrived she did have episode of vomiting. Patient admits to being in her normal state of health yesterday. She currently feels chilled but denies any documented fever, sweats, lightheadedness, presyncope, URI sy mptoms, cough, chest pain, headache, change in vision, change in hearing, hematuria, melena or hematochezia. She does complain of suprapubic abdominal discomfort as well as dysuria. She denies any weight gain or edema. She states she is actually lost weight. She did not take any of her medications today. In ED patient's BP was significantly elevated but otherwise hemodynamically stable. Her lab work was consistent with WBC 10.48, H&H 12.4 and 37.6, BUN 23, creatinine 0.97, glucose 149, troponin 0.07, procalcitonin 0.05, urinalysis concerning for infection. Chest x-ray revealed cardiomegaly with bilateral pulmonary opacities concerning for infectious or inflammatory pneumonitis such as viral pneumonia. She is saturating well on room air without respiratory complaints. In ED she did receive IV Rocephin, azithromycin and IV fluid. Admission Exam (Per Admitting) Constitutional Constitutional: WD/WN, elderly, F vitals as above, NAD, sitting up in bed, pleasant, conversing easily Head: Normocephalic, Atraumatic Eyes: PERRL, conjunctivae normal, anicteric sclerae ENMT: external ear and nose normal, oropharynx normal Neck: trachea midline, no thyromegaly normal visual inspection Respiratory: normal respiratory effort, lungs clear to auscultation, no wheeze, rales, rhonchi. Normal insp/exp effort, no accessory muscle use Cardiovascular: RRR, no murmur, no edema Vessels: no JVD or carotid bruit Chest: normal inspection of chest Abdomen: normal bowel sounds, soft, +suprapubic tenderness to palpation, no rebound,rigidty, no hepatosplenomegaly Musculoskeletal: no cyanosis or clubbing, extremities motor strength 5/5 Skin: no rashes, warm and dry normal turgor Neurologic: PERRL, EOMI, accommodation nl, no face palsy, no dysarthria CN's II-XI intact bilaterally and moves all extremities Psychiatric: A+Ox3, euthymic affect Lymphatic: no cervical or axillary lymphadenopathy : deferred Discharge Data Consultations 05/16/21 14:42 ED Decision to Admit Stat Procedures Performed CT SCAN OF THE CHEST WITHOUT IV CONTRAST CLINICAL HISTORY: Dyspnea. COMPARISON STUDY: Chest x-ray dated 05/16/2021. TECHNIQUE: CT scan of the thorax was performed from the thoracic inlet to the upper abdomen. Images are reviewed in the axial, sagittal, and coronal planes. IV contrast was not administered for this examination as per the referring clinician. A dose lowering technique was utilized adhering to the principles of [place]. CT DOSE: 402.44 mGy.cm FINDINGS: Thyroid: Normal in size and heterogeneous in attenuation. Thoracic aorta: There is atherosclerotic calcification of the thoracic aorta trauma with is normal in caliber and demonstrates standard 3-vessel arch anatomy. Heart: The heart is enlarged and without pericardial effusion. The pulmonary trunk is mildly dilated measuring 3.3 cm diameter. This suggests pulmonary artery hypertension. The coronary arteries and mitral annulus are densely calcified. Lungs and pleural spaces: Subpleural reticulation is seen throughout both lungs. There is bibasilar scarring/atelectasis. No airspace consolidation typical for pneumonia or pleural effusion is identified. Foci of air trapping are seen throughout both lungs. The trachea and central airways are clear. A 4 mm focus of pleural-based nodularity seen in the right upper lobe along the minor fissure on image #152. Mediastinum: There is no mediastinal lymphadenopathy. Glenis: Not well assessed without IV contrast. Axillae: There is no axillary lymphadenopathy. Upper abdomen: There is a small to moderate hiatal hernia. A coarse calcification is noted in the right lobe of the liver. Diverticula are noted in the partially imaged left colon. Skeletal structures: The skeletal structures are osteopenic. There is a mild chronic superior endplate compression deformity of T3. Degenerative change is noted in the shoulders and thoracic spine. There are healed right-sided rib fractures. No lytic or blastic bony lesions are seen. IMPRESSION: Cardiomegaly and chronic parenchymal changes as above with no active disease in the chest. ACT 112: Negative or not required by law. Electronically signed by: Kendall Walker M.D. 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 Generalized weakness Fall UTI Urine culture: MSSA afebrile weakness much improved PT recommends home with home health received Ceftri IV x 3 doses discharge on 2 more days of Augmentin PO d/c Burton ff up with PCP in 1 week Hypertensive urgency Mildly Elevated troponin History of CAD with PCI to RCA in 2006 Abnormal EKG Patient with well-controlled BP as outpatient, Toprol and Imdur BP systolic greater than 230 during my evaluation She is without chest pain or shortness of breath, troponin 0.07 Hydralazine 10 mg IV x1 given SBP, give additional 10 mg IV hydralazine monitor closely, consider starting amlodipine or trial IV vasotec. If difficultly to control BP may need to consider cardene gtt ( Blood pressure improved to 153/62 and hydralazine 10mg x 2 and placement of burton catheter) cycle troponins, repeat EKG pt with abn ekg ? rate controlled afib and sinus pause, will monitor closely on tele, if definite afib consult cardiology give home dose imdur 05/18 troponin trended down from 0.2 to 0.1 EKG no signs of acute infarct Echo: EF 65-70% moderate LVH no regional wall motion abnormalities no chest pain Urinary Retention nurse reports >800cc urine retention d/c Burton likely from UTI ff up with PCP this week Abnormal CT chest finding Please refer to full report in the Ordered Studies section above A 4 mm focus of pleural-based nodularity seen in the right upper lobe along the minor fissure on image #152. Further work up, management, and ff up as outpatient Hyperglycemia a1c 6.2 diet HLD continue statin CKD stage III stable avoid nephrotoxic agents DVT ppx: Lovenox Disposition d/c home with home health SVCs ff up with PCP in 1 week plan of care discussed with patient in detail and at length all questions answered she is understanding, agreeable, comfortable with the plan of care
[2021-05-19] MEDS: CHOLECALCIFEROL 5,000 UNITS 125 MCG TAB PO SCH (12:01)
[2021-05-19] MEDS: ACETAMINOPHEN 325 MG TAB PO PRN (13:40)
[2021-05-20] MEDS ORDERED: AMOXICILLIN/CLAVULANATE 875 MG TAB PO SCH (09:00)
== END 2021-05-19 16:27 | disposition home health service (06) | DRG 689 ==
LOC: ED 11:26 → EDINP 14:52 → SUATTDRO 14:52 → 2N 05-17 23:11